=== PATIENT | female | born 2000 | race Caucasian/White ===

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

== ENCOUNTER 2019-08-16 16:03 | Observation (INO) | payer OTHER ==
[2019-08-16 17:27] VITALS: BP 107/61
[2019-08-16] MEDS ORDERED: PREN-371 PO (17:43)
[2019-08-16 17:55] LABS: BASOPHILS % (AUTO) 0.3 % (0.0-2.0); EOSINOPHILS # (AUTO) 0.1 K/uL (0-0.4); EOSINOPHILS % (AUTO) 1.1 % (0.0-4.0); HEMOGLOBIN 10.8 g/dL (12.0-16.0); LYMPHOCYTES # (AUTO) 1.3 K/uL (2.5-16.5); LYMPHOCYTES % (AUTO) 16.2 % (20.5-51.1); MEAN CORPUSCULAR HEMOGLOBIN 28 pg (27-31); MEAN CORPUSCULAR HGB CONC 33 g/dL (33-37); MEAN CORPUSCULAR VOLUME 86.5 fL (80-94); MONOCYTES # (AUTO) 0.6 K/uL (0.8-1.0); NEUTROPHILS # (AUTO) 6.2 K/uL (1.8-7.7); NEUTROPHILS % (AUTO) 75.4 % (42.2-75.2); PLATELET COUNT (AUTO) 206 K/uL (140-450); RED BLOOD CELL COUNT(AUTO) 3.82 MIL/uL (4.20-5.40); WHITE BLOOD COUNT (AUTO) 8.3 K/uL (4.5-11.0)
[2019-08-16 18:36] LABS: APPEARANCE,URINE CLEAR (CLEAR); BILIRUBIN,URINE NEGATIVE (NEGATIVE); BLOOD, URINE NEGATIVE (NEGATIVE); COLOR,URINE YELLOW (YELLOW); LEUKOCYTE ESTERASE ,URINE TRACE (NEGATIVE); NITRITE, URINE NEGATIVE (NEGATIVE); PH,URINE 5.5 (5.0-9.0); UGLUCOSE NEGATIVE (NEGATIVE)
[2019-08-16 19:13] LABS: ALBUMIN 2.5 g/dL (3.4-5.0); ANION GAP 13.3 (8-16); CARBON DIOXIDE 26.2 mmol/L (21-32); CREATININE 0.6 mg/dL (0.6-1.3); POTASSIUM 3.5 mmol/L (3.5-5.1); TOTAL BILIRUBIN 0.3 mg/dL (0.0-1.0)
== END 2019-08-16 21:40 | disposition home or self-care (01) ==
LOC: MLD 16:03
PROVIDERS: ADMIT Obstetrics & Gynecology; ATTEND Obstetrics & Gynecology
DX: O36.8130 Decreased fetal movements, third trimester, not applicable or unspecified (principal); Z3A.32 32 weeks gestation of pregnancy
CPT/HCPCS: 36415; 76819; 80053; 81003; 85025; 86886; 86900; 86901; G0378; Q0092

== ENCOUNTER 2019-09-30 09:12 | Inpatient (IN) | payer OTHER, SELFPAY ==
[~2019-09-30] VITALS: Ht 167.6 cm; Wt 122.5 kg
[~2019-09-30 09:12] MED LIST: PREN-371 PO
[2019-09-30] MEDS ORDERED: CITRIC ACID/SODIUM CITRATE 30 ML UDC PO SCH (10:00)
[2019-09-30] MEDS ORDERED: CLINDAMYCIN 900 MG in DEXTROSE 5% 100 ML IV SCH (10:00)
[2019-09-30] MEDS ORDERED: LACTATED RINGERS 1,000 ML IV SCH (10:00)
[2019-09-30 10:42] LABS: APPEARANCE,URINE SL CLOUDY (CLEAR); BILIRUBIN,URINE NEGATIVE (NEGATIVE); BLOOD, URINE NEGATIVE (NEGATIVE); COLOR,URINE YELLOW (YELLOW); LEUKOCYTE ESTERASE ,URINE TRACE (NEGATIVE); NITRITE, URINE NEGATIVE (NEGATIVE); UGLUCOSE NEGATIVE (NEGATIVE)
[2019-09-30 11:01] LABS: BASOPHILS % (AUTO) 0.2 % (0.0-2.0); EOSINOPHILS # (AUTO) 0.1 K/uL (0-0.4); EOSINOPHILS % (AUTO) 1.3 % (0.0-4.0); HEMATOCRIT 39.3 % (36-48); LYMPHOCYTES # (AUTO) 1.6 K/uL (2.5-16.5); LYMPHOCYTES % (AUTO) 16.4 % (20.5-51.1); MEAN CORPUSCULAR HEMOGLOBIN 28 pg (27-31); MEAN CORPUSCULAR HGB CONC 33 g/dL (33-37); MEAN CORPUSCULAR VOLUME 85.2 fL (80-94); MONOCYTES # (AUTO) 0.7 K/uL (0.8-1.0); MONOCYTES % (AUTO) 7.3 % (1.7-9.3); NEUTROPHILS # (AUTO) 7.5 K/uL (1.8-7.7); NEUTROPHILS % (AUTO) 74.8 % (42.2-75.2); PLATELET COUNT (AUTO) 226 K/uL (140-450); RED BLOOD CELL COUNT(AUTO) 4.62 MIL/uL (4.20-5.40); RED CELL DISTRIBUTION WIDTH 17.5 % (11.6-13.7)
[2019-09-30] MEDS ORDERED: [UNRECOGNIZED DRUG - CODE] PO (11:10)
[2019-09-30] MEDS ORDERED: LEVO0.114 PO (11:10)
[2019-09-30 11:16] VITALS: BP 141/63
[2019-09-30 11:26] LABS: BARBITURATE, URINE NEGATIVE ng/ml (NEG <=200); BENZODIAZEPINE, URINE NEGATIVE ng/mL (NEG <=200); CANNABINOID, URINE NEGATIVE ng/mL (NEG <=50); COCAINE, URINE NEGATIVE ng/mL (NEG <=300); OPIATE, URINE NEGATIVE ng/mL (NEG <=2000); PHENCYCLIDINE SCREEN,URINE NEGATIVE ng/mL (NEG <=25)
[2019-09-30 11:28] LABS: RBC,URINE 0 /HPF (0-5); WBC,URINE 0-5 /HPF (0-5)
[2019-09-30] MEDS ORDERED: MORPHINE PRES FREE 10 MG/10 ML AMP IV ONE (12:02)
[2019-09-30] MEDS ORDERED: OXYTOCIN 10 UNITS/ML VIAL ONE ×2 (12:05→13:25)
[2019-09-30] MEDS ORDERED: ONDANSETRON 4 MG/2 ML VIAL ONE (12:05)
[2019-09-30] MEDS ORDERED: OXYTOCIN 20 UNITS in LACTATED RINGERS 1,000 ML IV SCH (12:27)
[2019-09-30] MEDS ORDERED: KETOROLAC 30 MG/ML VIAL IVP PRN (12:30)
[2019-09-30] MEDS ORDERED: diphenhydrAMINE 50 MG/ML VIAL IVP PRN (12:30)
[2019-09-30] MEDS ORDERED: NALOXONE 0.4 MG/ML VIAL IVP PRN ×2 (12:30)
[2019-09-30] MEDS ORDERED: ONDANSETRON 4 MG/2 ML VIAL IVP PRN (12:30)
[2019-09-30] MEDS ORDERED: BISACODYL 5 MG TABEC PO PRN (19:15)
[2019-09-30] MEDS ORDERED: METHYLERGONOVINE 0.2 MG/ML AMP IM PRN (19:15)
[2019-09-30] MEDS ORDERED: SIMETHICONE 80 MG TAB.CHEW PO PRN (19:15)
[2019-09-30] MEDS ORDERED: PREN-371 PO (19:22)
[2019-09-30] MEDS ORDERED: OXYTOCIN 20 UNITS/LR PREMIX 1,000 ML IV ONE (23:55)
[2019-10-01 06:31] LABS: BASOPHILS % (AUTO) 0.2 % (0.0-2.0); EOSINOPHILS # (AUTO) 0.1 K/uL (0-0.4); HEMATOCRIT 36.3 % (36-48); HEMOGLOBIN 11.9 g/dL (12.0-16.0); LYMPHOCYTES # (AUTO) 1.2 K/uL (2.5-16.5); LYMPHOCYTES % (AUTO) 11.8 % (20.5-51.1); MEAN CORPUSCULAR HEMOGLOBIN 29 pg (27-31); MEAN CORPUSCULAR HGB CONC 33 g/dL (33-37); MEAN CORPUSCULAR VOLUME 86.9 fL (80-94); MONOCYTES # (AUTO) 0.8 K/uL (0.8-1.0); MONOCYTES % (AUTO) 7.4 % (1.7-9.3); NEUTROPHILS # (AUTO) 8.3 K/uL (1.8-7.7); NEUTROPHILS % (AUTO) 79.6 % (42.2-75.2); PLATELET COUNT (AUTO) 170 K/uL (140-450); RED BLOOD CELL COUNT(AUTO) 4.18 MIL/uL (4.20-5.40); WHITE BLOOD COUNT (AUTO) 10.4 K/uL (4.5-11.0)
[2019-10-01] MEDS: LEVOTHYROXINE 0.112 MG TAB PO SCH (07:38)
[2019-10-01] MEDS: KETOROLAC 30 MG/ML VIAL IVP PRN ×2 (07:59→15:59)
--- NOTE | 2019-10-01 09:02 | NUR ---
PATIENT HAS BEEN SCREENED AND CATEGORIZED LOW NUTRITION RISK. PATIENT WILL BE SEEN WITHIN 7 DAYS OF ADMISSION. 10/07/[address]
[2019-10-01] MEDS: oxyCODONE/APAP 5/325 MG 1 TAB TAB PO PRN ×2 (12:00→20:20)
[2019-10-02] MEDS: oxyCODONE/APAP 5/325 MG 1 TAB TAB PO PRN ×2 (03:19→15:07)
[2019-10-02] MEDS: LEVOTHYROXINE 0.112 MG TAB PO SCH (06:54)
[2019-10-02] MEDS: KETOROLAC 30 MG/ML VIAL IVP PRN (09:14)
[2019-10-02] MEDS ORDERED: IBUPROFEN 800 MG TAB PO PRN (10:30)
[2019-10-02] MEDS ORDERED: CAMERA MC ONE (19:28)
== END 2019-10-02 20:30 | disposition home or self-care (01) | DRG 540 ==
LOC: MDS 09:50 → MLD 09:50 → EDSTATUS 12:00 → MFCC 16:47
PROVIDERS: ADMIT Obstetrics & Gynecology; ATTEND Obstetrics & Gynecology
PROC: 10D00Z1 Extraction of Products of Conception, Low, Open Approach (ICD-10-PCS; principal; 2019-09-30 12:00)
DX: O32.1XX0 Maternal care for breech presentation, not applicable or unspecified (principal); E66.01 Morbid (severe) obesity due to excess calories; O99.284 Endocrine, nutritional and metabolic diseases complicating childbirth; O99.214 Obesity complicating childbirth; E03.9 Hypothyroidism, unspecified; O34.03 Maternal care for unspecified congenital malformation of uterus, third trimester; Z37.0 Single live birth; Z3A.39 39 weeks gestation of pregnancy; Q51.20 Other doubling of uterus, unspecified
CPT/HCPCS: 36415; 76815; 80305; 81001; 85025; 86592; 86886; 86900; 86901; 87081; J1200; J1885; J2270; J2405; J2590; J3490; J7060; J7120; Q0092

== ENCOUNTER 2023-08-25 20:11 | Emergency (ER) | payer OTHER ==
[~2023-08-25] VITALS: Ht 167.6 cm; Wt 150.1 kg
[~2023-08-25 20:11] MED LIST changes: +LEVO0.114 PO; +[UNRECOGNIZED DRUG - CODE] PO
[2023-08-25 21:37] VITALS: BP 113/63; PULSE 77; RESP 17; TEMP 97.7; O2SAT 97
[2023-08-25] MEDS: ACETAMINOPHEN EXTRA STRENGTH 500 MG TAB PO ONE (23:42)
[2023-08-25] MEDS: IBUPROFEN 600 MG TAB PO ONE (23:42)
[2023-08-25] MEDS ORDERED: LID5T TP (23:44)
== END 2023-08-25 23:56 | disposition home or self-care (01) ==
LOC: MED 20:11
DX: S70.12XA Contusion of left thigh, initial encounter (principal); M54.2 Cervicalgia; E11.9 Type 2 diabetes mellitus without complications; E03.9 Hypothyroidism, unspecified; Z79.899 Other long term (current) drug therapy; Z88.0 Allergy status to penicillin; V49.49XA Driver injured in collision with other motor vehicles in traffic accident, initial encounter; Y93.89 Activity, other specified; Y92.410 Unspecified street and highway as the place of occurrence of the external cause; Y99.8 Other external cause status
CPT/HCPCS: 99283